=== PATIENT | female | born 1995 | race African-American/Black ===

== ENCOUNTER 2020-12-27 12:01 | Emergency (ER) | payer MEDICAID ==
[~2020-12-27] VITALS: Ht 172.7 cm; Wt 62.0 kg
[~2020-12-27 12:01] MED LIST: NO HOME MEDS; ONDA8TAB6 PO
[2020-12-27] MEDS ORDERED: HYDROcodone/acetaminophen 5mg/325mg tablet PO ONE (12:55)
[2020-12-27] MEDS ORDERED: PENI500T2 PO (12:59)
[2020-12-27 13:16] VITALS: BP 128/81
== END 2020-12-27 13:36 | disposition home or self-care (01) ==
LOC: ER 12:02
DX: O26.891 Other specified pregnancy related conditions, first trimester (principal); K08.89 Other specified disorders of teeth and supporting structures; G43.909 Migraine, unspecified, not intractable, without status migrainosus; Z79.2 Long term (current) use of antibiotics; Z79.899 Other long term (current) drug therapy; Z3A.08 8 weeks gestation of pregnancy
CPT/HCPCS: 99283

== ENCOUNTER 2021-01-22 11:02 | Emergency (ER) | payer MEDICAID ==
[~2021-01-22] VITALS: Ht 170.2 cm; Wt 58.2 kg
[~2021-01-22 11:02] MED LIST changes: +PENI500T2 PO
[2021-01-22 11:05] VITALS: BP 92/53
== END 2021-01-22 21:30 | disposition left against medical advice (07) ==
LOC: ER 11:03
DX: R55 Syncope and collapse (principal); Z53.21 Procedure and treatment not carried out due to patient leaving prior to being seen by health care provider
CPT/HCPCS: 93005

== ENCOUNTER 2021-02-20 22:10 | Emergency (ER) | payer MEDICAID ==
[~2021-02-20] VITALS: Ht 170.2 cm; Wt 57.3 kg
[~2021-02-20 22:10] MED LIST changes: -PENI500T2 PO
[2021-02-20 22:25] VITALS: BP 109/67
== END 2021-02-20 23:17 | disposition left against medical advice (07) ==
LOC: ER 22:11
DX: Z53.21 Procedure and treatment not carried out due to patient leaving prior to being seen by health care provider (principal)

== ENCOUNTER 2023-11-21 17:11 | Emergency (ER) | payer MEDICAID ==
[~2023-11-21] VITALS: Ht 172.7 cm; Wt 55.9 kg
[2023-11-21 17:26] VITALS: PULSE 90; RESP 18; TEMP 97.6; O2SAT 100
[2023-11-21] MEDS: LEVONORGESTREL 1.5MG tablet 1.5 MG TABLET PO ONE (19:05)
[2023-11-21] MEDS: TINIDAZOLE 500 MG TABLET PO ONE (19:05)
[2023-11-21] MEDS: azithromycin 250mg tablet PO ONE (19:05)
[2023-11-21] MEDS: CefTRIAXone 500MG IM Kit w/LIDOcaine (for pt below or = to 150kg) IM ONE (19:05)
[2023-11-21 19:11] LABS: URINE HCG NEGATIVE (NEG)
== END 2023-11-21 23:05 | disposition home or self-care (01) ==
LOC: ER 17:12 → EEVIPCON 17:12 → ER 23:05
DX: T76.21XA Adult sexual abuse, suspected, initial encounter (principal); Z79.899 Other long term (current) drug therapy
CPT/HCPCS: 81025; 96372; 99284; J0696

== ENCOUNTER → 2023-11-21 | Emergency (ER) | payer MEDICAID ==
[~2023-11-21] VITALS: Ht 172.7 cm; Wt 55.9 kg
[2023-11-21 10:35] VITALS: BP 110/72; PULSE 77; RESP 18; TEMP 97.8; O2SAT 100
== END | disposition left against medical advice (07) ==
LOC: EEVIPCON 10:21 → ER 10:21
DX: Z00.00 Encounter for general adult medical examination without abnormal findings (principal); Z53.21 Procedure and treatment not carried out due to patient leaving prior to being seen by health care provider; Z91.030 Bee allergy status

== ENCOUNTER 2024-02-18 10:25 | Emergency (ER) | payer MEDICAID ==
[~2024-02-18] VITALS: Ht 172.7 cm; Wt 54.9 kg
[2024-02-18 12:45] VITALS: BP 116/65; PULSE 71; RESP 16; TEMP 97.9; O2SAT 99
[2024-02-18 12:50] LABS: BILIRUBIN,URINE NEGATIVE (Neg); CLARITY,URINE SLIGHTLY CLOUDY (Clear); COLOR,URINE YELLOW (Yellow); GLUCOSE, URINE NEGATIVE (Neg); KETONES,URINE NEGATIVE (Neg); LEUKOCYTE ESTERASE ,URINE NEGATIVE (Neg); NITRITES, URINE NEGATIVE (Neg); OCCULT BLOOD,URINE NEGATIVE (Neg); PROTEIN,URINE NEGATIVE (Neg); UROBILINOGEN,URINE 0.2 E.U/dL (0.2-1.0)
[2024-02-18 12:52] LABS: UA COLLECTION TYPE CLN CATCH MIDSTREAM
[2024-02-18 12:56] LABS: MUCUS STRANDS MODERATE /LPF (Neg); SQUAMOUS EPITHELIAL CELL,UR MANY /LPF (FEW)
[2024-02-18 12:58] LABS: URINE AMPHETAMINE SCREEN NEGATIVE (Neg); URINE BARBITUATE SCREEN NEGATIVE (Neg); URINE BENZODIAZEPINES SCREEN NEGATIVE (Neg); URINE CANNABINOID SCREEN POSITIVE (Neg); URINE COCAINE SCREEN NEGATIVE (Neg); URINE METHADONE SCREEN NEGATIVE (Neg); URINE OPIATE SCREEN NEGATIVE (Neg); URINE PHENCYCLIDINE SCREEN NEGATIVE (Neg)
[2024-02-18 12:59] LABS: BACTERIA,URINE FEW /HPF (Neg); RBC,URINE 0-2 /HPF (0-2); WBC,URINE 0-4 /HPF (0-4)
== END 2024-02-18 12:46 | disposition home or self-care (01) ==
LOC: ER 10:26
DX: S06.0XAA Concussion with loss of consciousness status unknown, initial encounter (principal); R41.0 Disorientation, unspecified; Z91.030 Bee allergy status; Z88.8 Allergy status to other drugs, medicaments and biological substances; Z79.899 Other long term (current) drug therapy; W08.XXXA Fall from other furniture, initial encounter; Y93.89 Activity, other specified; Y92.89 Other specified places as the place of occurrence of the external cause; Y99.8 Other external cause status
CPT/HCPCS: 70450; 71046; 72125; 80305; 81001; 99284